=== PATIENT | male | born 1970 ===

== ENCOUNTER 2022-08-08 06:13 | Emergency (ER) | payer MEDICARE, OTHER ==
[~2022-08-08] VITALS: Ht 170.2 cm; Wt 95.9 kg
[2022-08-08 06:16] VITALS: BP 144/87
[2022-08-08] MEDS ORDERED: IBUPROFEN 600 MG TABLET PO ONE (07:00)
== END 2022-08-08 07:31 | disposition home or self-care (01) ==
LOC: EMS 06:16
DX: G89.29 Other chronic pain (principal); M54.31 Sciatica, right side; E11.9 Type 2 diabetes mellitus without complications; I10 Essential (primary) hypertension; H54.8 Legal blindness, as defined in USA
CPT/HCPCS: 82962; 99282